=== PATIENT | female | born 1955 | race Caucasian/White ===

== ENCOUNTER 2017-07-30 01:41 | Emergency (ER) | payer OTHER ==
[~2017-07-30] VITALS: Ht 165.1 cm; Wt 87.9 kg
[~2017-07-30 01:41] MED LIST: BUTA1TAB6 PO; CRES10 PO; GLYB2.5T PO; LISI40TA PO; METO-448 PO; SITA100T8 PO; ZETIA PO
[2017-07-30 02:14] VITALS: Ht 165.1 cm; Wt 87.9 kg
[2017-07-30] MEDS ORDERED: SOD CHLORIDE 0.9% 500 ML IV STA (02:56)
[2017-07-30] MEDS ORDERED: LORAZEPAM 2 MG INJ IV ONE (03:00)
[2017-07-30] MEDS ORDERED: LORAZEPAM 1 MG TAB PO ONE (03:30)
--- NOTE | 2017-07-30 03:41 | RADRPT ---
PROCEDURE: Chest. CLINICAL INDICATION: Chest pain. TECHNIQUE: Single frontal view of the chest was obtained. COMPARISON: 08/19/2013. FINDINGS: Mediasternotomy wires are present. The cardiac silhouette is enlarged. The aortic arch is unremarka ble. There is no focal consolidation, vascular congestion or pleural effusion. There is no pneumot horax. IMPRESSION: Mild cardiomegaly. .Madi Jc MD, MD Date Time Electronically viewed and signed by .Madi Jc MD, on 07/30/2017 03:41 .T/
--- NOTE | 2017-07-30 05:14 | ERD ---
ER Documentation Chief Complaint Chief Complaint BIB 881 c/o dizziness, CP x3days. +nausea. blurred vision. CABG in 2013 HPI This 59-year-old female, with dizziness and chest pain for 3 days. Mild nausea. Chest pain is pressure-like, substernal no exacerbating relieving factors. No nausea no vomiting no chills. Pain is mild to moderate intensity. No other current issues ROS All systems reviewed and are negative except as per history of present illness. Medications Home Meds Reported Medications Glyburide* (Diabeta*) 2.5 Mg Tablet, 5 MG PO daily 08/19/13 [Zetia] No Conflict Check, 10 MG PO DAILY 08/19/13 Rosuvastatin Calcium* (Crestor*) 10 Mg Tablet, 10 MG PO DAILY 08/19/13 Butalbital/Aspirin/Caffeine (Ihj-Mkiwovfw-Eodcwkyfhm Tab) 1 Tab Tablet, 1 TAB PO DAILY 08/19/13 Sitagliptin* (Januvia*) 100 Mg Tablet, 100 MG PO daily 08/19/13 Metoprolol Tartrate* (Lopressor*) 25 Mg Tab, 25 MG PO bid 08/19/13 Lisinopril* (Prinivil*) 40 Mg Tablet, 40 MG PO daily 08/19/13 Allergies Allergies: Coded Allergies: No Known Allergy (Unverified , 07/30/17) PMhx/Soc History of Surgery: No (S/P BYPASS,HEART, CHOLECYSTECTOMY, APPENDECTOMY) Anesthesia Reaction: No Hx Neurological Disorder: No Hx Respiratory Disorders: No Hx Cardiac Disorders: Yes (CAD) Hx Psychiatric Problems: No Hx Miscellaneous Medical Probl: Yes (HYPERLIPEDEMIA, OBESITY, DM) Hx Alcohol Use: No Hx Substance Use: No Hx Tobacco Use: No Smoking Status: Never smoker Physical Exam Vitals Vital Signs Date Time Temp Pulse Resp B/P Pulse Ox O2 Delivery O2 Flow Rate FiO2 07/30/17 02:35 96.5 67 20 145/86 98 Room Air 07/30/17 02:35 Nasal Cannula 2 07/30/17 02:14 96.5 68 20 155/75 100 Physical Exam Const: [] Head: Atraumatic Eyes: Normal Conjunctiva ENT: Normal External Ears, Nose and Mouth. Neck: Full range of motion..~ No meningismus. Resp: Clear to auscultation bilaterally Cardio: Regular rate and rhythm, no murmurs Abd: Soft, non tender, non distended. Normal bowel sounds Skin: No petechiae or rashes Back: No midline or flank tenderness Ext: No cyanosis, or edema Neur: Awake and alert Psych: Normal Mood and Affect Result Diagram: 07/30/1730907/30/17309 Results 24 hrs Laboratory Tests Test 07/30/17 03:10 07/30/17 03:20 White Blood Count 5.310^3/ul Red Blood Count 4.7010^6/ul Hemoglobin 13.5g/dl Hematocrit 40.1% Mean Corpuscular Volume 85.3fl Mean Corpuscular Hemoglobin 28.7pg Mean Corpuscular Hemoglobin Concent 33.7g/dl Red Cell Distribution Width 13.0% Platelet Count 39119^3/UL Mean Platelet Volume 12.2fl Neutrophils % 66.2% Lymphocytes % 25.7% Monocytes % 6.8% Eosinophils % 0.9% Basophils % 0.2% Nucleated Red Blood Cells % 0.0/100WBC Neutrophils # 3.510^3/ul Lymphocytes # 1.410^3/ul Monocytes # 0.410^3/ul Eosinophils # 0.110^3/ul Basophils # 0.010^3/ul Nucleated Red Blood Cells # 0.010^3/ul Sodium Level 143mmol/L Potassium Level 4.2mmol/L Chloride Level 106mmol/L Carbon Dioxide Level 23mmol/L Anion Gap 18 Blood Urea Nitrogen 21mg/dl Creatinine 0.62mg/dl Glucose Level 203mg/dl Calcium Level 9.6mg/dl Total Bilirubin 0.4mg/dl Direct Bilirubin 0.00mg/dl Indirect Bilirubin 0.4mg/dl Aspartate Amino Transf (AST/SGOT) 28IU/L Alanine Aminotransferase (ALT/SGPT) 44IU/L Alkaline Phosphatase 61IU/L Troponin I < 0.012ng/ml Total Protein 8.2g/dl Albumin 4.3g/dl Globulin 3.90g/dl Albumin/Globulin Ratio 1.10 Bedside Glucose 178mg/dL Current Medications Medications (Trade) Dose Ordered Sig/Talon Route PRN Reason Start Time Stop Time Status Last Admin Dose Admin Sodium Chloride (NS) 500 ml @ 500 mls/hr Q1H STAT IV 07/30/17 02:56 07/30/17 03:25 DC Lorazepam (Ativan) 1 mg ONCE ONCE IV 07/30/17 03:00 07/30/17 03:25 DC Lorazepam (Ativan) 1 mg ONCE ONCE PO 07/30/17 03:30 07/30/17 03:46 DC 07/30/17 04:07 Procedures/MDM EKG: Rate/Rhythm: [Normal Sinus Rhythm] QRS, ST, T-waves: [No changes consistent w/ acute ischemia] Impression: [No evidence of ischemia or arrhythmia] Chest X-ray 1V Interpreted by me: Soft Tissue: No acute abnormalities Bones: No acute abnormalities Mediastinum/Cardiac Silhouette/Lungs: [No acute abnormalities] Patient's symptoms are concerning for cardiac cause will require inpatient workup and continuous monitoring. Further w/u for ischemia, arrhythmia, PE or dissection will be deferred to the inpatient team. Accepting Care Team: Current data and ongoing care discussed. Time: 5:13 AM Primary Provider: Hospitalist Consulting: [XOXOXO] Outstanding Data: none Departure Diagnosis: Primary Impression: Chest pain Chest pain type: unspecified Qualified Code: R07.9 - Chest pain, unspecified type Condition: Serious VICKY DE LA O Jul 30, 2017 05:14
[2017-07-30] MEDS ORDERED: MECLIZINE 12.5 MG TAB PO ONE (05:30)
[2017-07-30] MEDS ORDERED: EZET10TA3 PO (09:00)
[2017-07-30] MEDS ORDERED: CRES10 PO (09:03)
[2017-07-30] MEDS ORDERED: ERGO500037 PO (09:03)
[2017-07-30] MEDS ORDERED: OMEP20CA16 PO (09:03)
[2017-07-30] MEDS ORDERED: METO-319 PO (09:05)
[2017-07-30] MEDS ORDERED: SITA1TAB5 PO (09:05)
[2017-07-30] MEDS ORDERED: AMLO5TAB4 PO (09:05)
[2017-07-30] MEDS ORDERED: CANA100T PO (09:06)
[2017-07-30] MEDS ORDERED: ROSU20TA PO (09:07)
[2017-07-30] MEDS ORDERED: ASPI81TA3 PO (09:07)
[2017-07-30] MEDS ORDERED: OMEP40CA6 PO (09:08)
[2017-07-30 09:21] VITALS: BP 137/67; PULSE 71; RESP 18; TEMP 98.2
== END 2017-07-30 11:16 | disposition short-term general hospital (02) ==
LOC: E/R 01:41
DX: R07.9 Chest pain, unspecified (principal); I25.10 Atherosclerotic heart disease of native coronary artery without angina pectoris; E66.9 Obesity, unspecified; E11.9 Type 2 diabetes mellitus without complications; Z68.32 Body mass index [BMI] 32.0-32.9, adult; Z79.84 Long term (current) use of oral hypoglycemic drugs
CPT/HCPCS: 36415; 71010; 80053; 82550; 82553; 82962; 84484; 85025; 93005; Z7502; Z7610; J7040

== ENCOUNTER 2018-11-15 21:10 | Emergency (ER) | payer OTHER ==
[~2018-11-15] VITALS: Wt 87.3 kg
[~2018-11-15 21:10] MED LIST changes: +AMLO5TAB4 PO; +ASPI-903 PO; -BUTA1TAB6 PO; +CANA100T PO; -CRES10 PO; +ERGO500013 PO; +EZET10TA31 PO; -GLYB2.5T PO; -LISI40TA PO; +METO-319 PO; -METO-448 PO; +OMEP40CA6 PO; +ROSU20TA PO; -SITA100T8 PO; +SITA1TAB5 PO; -ZETIA PO
[2018-11-15] MEDS ORDERED: ONDANSETRON 4 MG INJ IV STA (22:36)
[2018-11-15] MEDS ORDERED: SOD CHLORIDE 0.9% 1,000 ML IV STA (22:36)
[2018-11-15] MEDS ORDERED: KETOROLAC 15 MG INJ IV STA (22:36)
--- NOTE | 2018-11-16 00:09 | ERD ---
ER Documentation Chief Complaint Chief Complaint AP, DYSURIA X'S 2 DAYS. HTN IN TRIAGE HPI This is a 63-year-old female with a past medical history of hypertension, hyperlipidemia, diabetes, GERD who is presenting with suprapubic abdominal pain and dysuria for 2 days. The patient reportedly had a checkup completed last week where a urinalysis was completed. While the patient did not have any symptoms, the patient's urinalysis was concerning for a urinary tract infection at that time and she was prescribed ciprofloxacin for 3 days. Over the last 2 days, she actually started to develop suprapubic pain with burning dysuria and urinary frequency. The patient reports that her pain radiates to the left flank. The patient has a secondary complaint of an excoriated rash to the left lower abdomen. It is itchy and otherwise nontender. The patient has been scratching it a lot. The patient has not noticed any vesicular lesions. She has not had any eruptions. She does not have any history of being in an immunocompromise state. The patient denies feeling sick recently. The patient denies fever or chills. The patient has had no headache or vision changes. The patient does not endorse neck or back pain. The patient denies lightheadedness or dizziness. The patient has had no chest pain or trouble breathing. The patient denies nausea or vomiting. The patient denies abdominal pain. The patient denies changes to bowel movements or urination. The patient has had no focal deficits. The patient has had no weakness or numbness or tingling to the face or extremities. ROS All systems reviewed and are negative except as per history of present illness. Medications Home Meds Reported Medications Omeprazole* (Omeprazole*) 40 Mg Capsule.dr, 40 MG PO DAILY, #30 CAP 07/30/17 Aspirin* (Aspirin* Chew) 81 Mg Tab.chew, 81 MG PO DAILY, TAB.CHEW 07/30/17 Rosuvastatin Calcium* (Crestor*) 20 Mg Tablet, 20 MG PO QHS, #30 TAB 07/30/17 Canagliflozin (Invokana) 100 Mg Tablet, 100 MG PO DAILY, TAB 07/30/17 Sitagliptin Phos/Metformin HCl (Janumet 50-1,000 mg Tablet) 1 Each Tablet, 1 EA CH PO BID, TAB 07/30/17 Amlodipine Besylate* (Norvasc*) 5 Mg Tablet, 5 MG PO DAILY, TAB 07/30/17 Metoprolol Succinate* (Toprol XL*) 50 Mg Tab.er.24h, 50 MG PO DAILY, #30 TAB 07/30/17 Ergocalciferol (Vitamin D2) (VITAMIN D2) 50,000 Unit Capsule, [address] UNIT PO WEEKLY, CAP 07/30/17 Ezetimibe* (Zetia*) 10 Mg Tablet, 10 MG PO HS, TAB 07/30/17 Allergies Allergies: Coded Allergies: No Known Allergy (Unverified , 07/30/17) PMhx/Soc History of Surgery: No (S/P BYPASS,HEART, CHOLECYSTECTOMY, APPENDECTOMY) Anesthesia Reaction: No Hx Neurological Disorder: No Hx Respiratory Disorders: No Hx Cardiac Disorders: Yes (Hypertension, hyperlipidemia, diabetes, coronary artery disease) Hx Psychiatric Problems: No Hx Miscellaneous Medical Probl: Yes (GERD, OBESITY) Hx Alcohol Use: No Hx Substance Use: No Hx Tobacco Use: No Smoking Status: Never smoker FmHx Family History: No diabetes Physical Exam Vitals Vital Signs Date Temp Pulse Resp B/P (MAP) Pulse Ox O2 O2 Flow FiO2 Time Delivery Rate 11/15/18 98.2 85 20 187/111 97 21:41 (136) Physical Exam Const: No apparent distress, well-developed, well-nourished Head: Normocephalic, Atraumatic Eyes: Normal Conjunctiva. Extraocular movements intact. Pupils equal, round and reactive to light ENT: Normal External Ears, Nose and Mouth. Neck: Full range of motion. No meningismus. Resp: Clear to auscultation bilaterally, No wheezes, rales or rhonchi Cardio: Regular rate and rhythm. No murmurs, rubs or gallops Abd: Soft, non distended. Mild suprapubic tenderness. Normal bowel sounds Skin: No petechiae or rashes Back: No midline tenderness. No CVA tenderness Ext: No cyanosis, or edema. Linear excoriated scabbing lesions to the left lower abdomen. Neur: Awake and alert, oriented 4. Cranial nerves intact. No facial droop. Normal strength, sensation and coordination. Psych: Normal Mood and Affect Result Diagram: 11/15/18225511/15/182255 Results 24 hrs Laboratory Tests Test 11/15/18 22:55 11/15/18 22:56 Urine Color STRAW Urine Clarity CLEAR Urine pH 7.0 Urine Specific [place] 1.025 Urine Ketones NEGATIVE mg/dL Urine Nitrite NEGATIVE mg/dL Urine Bilirubin NEGATIVE mg/dL Urine Urobilinogen NEGATIVE mg/dL Urine Leukocyte Esterase TRACE Betsy/ul Urine Microscopic RBC 1 /HPF Urine Microscopic WBC 7 /HPF Urine Hemoglobin 1+ mg/dL Urine Glucose 3+ mg/dL Urine Total Protein NEGATIVE mg/dl White Blood Count 6.8 10^3/ul Red Blood Count 4.30 10^6/ul Hemoglobin 12.1 g/dl Hematocrit 36.9 % Mean Corpuscular Volume 85.8 fl Mean Corpuscular Hemoglobin 28.1 pg Mean Corpuscular Hemoglobin Concent 32.8 g/dl Red Cell Distribution Width 13.5 % Platelet Count 142 10^3/UL Mean Platelet Volume 12.4 fl Immature Granulocytes % 0.300 % Neutrophils % 70.3 % Lymphocytes % 22.5 % Monocytes % 6.1 % Eosinophils % 0.7 % Basophils % 0.1 % Nucleated Red Blood Cells % 0.0 /100WBC Immature Granulocytes # 0.020 10^3/ul Neutrophils # 4.8 10^3/ul Lymphocytes # 1.5 10^3/ul Monocytes # 0.4 10^3/ul Eosinophils # 0.1 10^3/ul Basophils # 0.0 10^3/ul Nucleated Red Blood Cells # 0.0 10^3/ul Sodium Level 137 mmol/L Potassium Level 4.4 mmol/L Chloride Level 100 mmol/L Carbon Dioxide Level 25 mmol/L Anion Gap 12 Blood Urea Nitrogen 16 mg/dl Creatinine 0.69 mg/dl Est Glomerular Filtrat Rate mL/min > 60 mL/min Glucose Level 277 mg/dl Calcium Level 10.0 mg/dl Total Bilirubin 0.2 mg/dl Direct Bilirubin 0.00 mg/dl Indirect Bilirubin 0.2 mg/dl Aspartate Amino Transf (AST/SGOT) 31 IU/L Alanine Aminotransferase (ALT/SGPT) 35 IU/L Alkaline Phosphatase 56 IU/L Total Protein 8.3 g/dl Albumin 4.6 g/dl Globulin 3.70 g/dl Albumin/Globulin Ratio 1.24 Lipase 108 U/L Current Medications Medications Dose Sig/Talno Start Time Status Last (Trade) Ordered Route PRN Stop Time Admin Dose Reason Admin Sodium 1,000 ml @ Q1H STAT 11/15/18 DC 11/15/18 Chloride 1,000 mls/hr IV 22:36 23:10 11/15/18 23:35 Ondansetron 4 mg ONCE STAT 11/15/18 DC 11/15/18 HCl (Zofran IV 22:36 23:10 Inj) 11/15/18 22:37 Ketorolac 15 mg ONCE STAT 11/15/18 DC 11/15/18 Tromethamine IV 22:36 23:10 (Toradol) 11/15/18 22:37 Procedures/MDM MDM The patient's presentation warrants further investigation. Previous medical records, if available, were reviewed. LABS The patient's laboratory testing was obtained and reviewed. No emergent treatment was required unless described below. CBC: No E/o of systemic infection or severe anemia or thrombocytopenia CMP: No E/o severe acidosis or alkalosis or renal failure or liver disease. Hyperglycemia without diabetic ketoacidosis Lipase: No E/o pancreatitis Urine: E/o acute infection. No hematuria TREATMENT/DISPOSITION The patient presents with dysuria. There is evidence of a urinary tract infection. This may be treated in an outpatient setting. The patient did endorse waxing and waning left-sided flank pain. The patient's creatinine is unremarkable. She did not have CVA tenderness on exam. I have low suspicion for pyelonephritis. There is no evidence of hematuria. I have low suspicion f or nephrolithiasis. The patient does not have any evidence of peritonitis. The patient does not have clinical symptoms concerning for mesenteric ischemia or ischemic colitis. The patient does not have right upper quadrant tenderness, and I have low suspicion for gallstones, cholecystitis or biliary colic. The patient does not have any epigastric pain. I have low suspicion for gastritis, PUD or GERD. The patient does not have left upper quadrant tenderness. I have low suspicion for pancreatitis. The patient does not have any right lower quadrant tenderness, or periumbilical tenderness. I have low suspicion for appendicitis. The patient has not had any black or bloody or tarry stools. I have low suspicion for diverticulosis or diverticulitis. The patient does not have any palpable puls atile mass or severe abdominal pain radiating to the back. I have low suspicion for aortic aneurysm, dissection or rupture. The patient does also endorse a rash around the site of her pain is well. While I do not see any obvious vesicular lesions, the patient's reported pain could be related to possible herpes zoster as it does fit a dermatome and does not cross midline. I will treat for this. The patient was treated with IV fluids, Zofran and Toradol with improvement of her symptoms. Upon reevaluation of the patient, symptoms have improved. No emergent diagnoses were identified. At this time, I feel that the patient stable for discharge. The patient was instructed to follow-up with a primary care physician in 1-3 days. The patient will be given strict precautions with which to return to the emergency department. Prescriptions: Acyclovir, Macrobid The patient's blood pressure was elevated at greater than 120/80 while in the emergency department. The patient was otherwise stable with no evidence of hypertensive urgency or emergency. The patient does not require admission for blood pressure control. I have discussed with the patient the risks of hypertension. I have instructed the patient to return to the ER for any new or worsening symptoms including chest pain, shortness of breath, headache, blurred vision, confusion, nausea, vomiting or LOC. I have advised the patient to follow up with the primary care physician for outpatient monitoring and treatment for hypertension in 1-3 days. Disclaimer: Inadvertent spelling and grammatical errors are likely due to EHR/dictation software use and do not reflect on the overall quality of patient care. Note that the electronic time recorded on this note does not necessarily reflect the actual time of the patient encounter. Departure Diagnosis: Primary Impression: Urinary tract infection Urinary tract infection type: acute cystitis Hematuria presence: without hematuria Qualified Codes: N30.00 - Acute cystitis without hematuria Additional Impressions: Herpes zoster Herpes zoster complications: without complications Qualified Codes: B02.9 - Zoster without complications Dysuria Suprapubic pain Hyperglycemia Condition: Stable JUANY SKINNER MD Nov 15, 2018 23:55
[2018-11-16] MEDS ORDERED: NITR-58 PO (00:10)
[2018-11-16] MEDS ORDERED: ACYC800T5 PO (00:10)
[2018-11-16 00:20] VITALS: BP 118/68; PULSE 76; RESP 21
== END 2018-11-16 00:20 | disposition home or self-care (01) ==
LOC: E/R 21:10
DX: N30.00 Acute cystitis without hematuria (principal); B02.9 Zoster without complications; E11.65 Type 2 diabetes mellitus with hyperglycemia; I10 Essential (primary) hypertension; I25.10 Atherosclerotic heart disease of native coronary artery without angina pectoris; E66.9 Obesity, unspecified; Z79.82 Long term (current) use of aspirin; Z79.84 Long term (current) use of oral hypoglycemic drugs
CPT/HCPCS: 36415; 80053; 81001; 83690; 85025; 96374; 96375; J1885; J2405; J7030; Z7502